=== PATIENT | male | born 1985 | race Caucasian/White ===

== ENCOUNTER 2017-06-23 17:09 | Emergency (ER) | payer BC ==
[~2017-06-23] VITALS: Ht 180.3 cm; Wt 68.5 kg
--- NOTE | 2017-06-23 17:15 | ER.PDOC ---
General Chief Complaint: Requesting Medical Care Stated Complaint: GENERAL Time seen by MD: 17:33 Source: patient Exam Limitations: no limitations History of Present Illness Onset: yesterday Context: laceration Severity: mild Associated Symptoms: unable to bear weight Past Medical History Medical History: no pertinent history Review of Systems Constitutional: no symptoms reported EENTM: no symptoms reported Respiratory: no symptoms reported Cardiovascular: no symptoms reported Gastrointestinal: no symptoms reported Skin: other (erythema l leg) Psychiatric/Neurological: see HPI, other (inabilty to focus) Physical Exam General Appearance: Alert, No Apparent Distress Foot: nml inspection, non-tender, nml color/temp, skin intact Ankle: swelling Knee: nml inspection, non-tender, nml ROM, no joint swelling Thigh/Hip: nml inspection 1 - erythema Gait: normal Neuro/Vasc/Tendon: sensation nml, motor nml, no vascular compromise, tendon function nml Skin: warm/dry Head/ENT: nml inspection, pharynx nml Neck/Back: nml inspection, non-tender Abdomen: non-tender, pelvis stable Results/Orders Results/Orders Laboratory Tests Test 06/23/17 17:30 White Blood Count 8.1 10^3/uL (4.5-11.0) Red Blood Count 4.56 10^6/uL (4.50-5.90) Hemoglobin 14.1 g/dL (13.9-16.3) Hematocrit 42.8 % (37.0-53.0) Mean Corpuscular Volume 93.9 fL (78-100) Mean Corpuscular Hemoglobin 30.9 pg (26-34) Mean Corpuscular Hemoglobin Concent 32.9 g/dL (33-37) Red Cell Distribution Width 13.1 % (11.5-14.5) Platelet Count 185 10^3/uL (150-400) Mean Platelet Volume 8.8 fL (7.8-11.0) Neutrophils (%) (Auto) 53.7 % (41.0-85.0) Lymphocytes (%) (Auto) 30.3 % (24.0-44.0) Monocytes (%) (Auto) 8.8 % (5.0-12.0) Neutrophils # (Auto) 4.3 10^3/uL (1.8-7.7) Lymphocytes # (Auto) 2.5 10^3/uL (1.0-4.8) Monocytes # (Auto) 0.7 10^3/uL (0.3-0.8) Absolute Immature Granulocyte (auto 0.02 10^3 u/L (0-2) Eosinophils % 6.6 % (0.0-5.0) Basophils % 0.4 % (0.0-0.2) Basophils # 0.0 10^3/uL (0.0-0.1) Erythrocyte Sedimentation Rate 1 mm/hr (0-20) Eosinophil Count 0.5 10^3/uL (0.0-0.2) Sodium Level 142 mmol/L (132-145) Potassium Level 4.2 mmol/L (3.6-5.2) Chloride Level 106.0 mmol/L (96-109) Carbon Dioxide Level 31.1 mmol/L (20.0-32) Anion Gap 9.1 Blood Urea Nitrogen 20 mg/dL (7-18) Creatinine 1.09 mg/dL (0.59-1.40) Estimated GFR () 95.5 (>/=60) BUN/Creatinine Ratio 18.0 Glucose Level 83 mg/dL (70-110) Calcium Level 9.5 mg/dL (8.4-10.5) Total Bilirubin 0.2 mg/dL (0.2-1.0) Aspartate Amino Transf (AST/SGOT) 20 U/L (0-35) Alanine Aminotransferase (ALT/SGPT) 24 U/L (12-78) Alkaline Phosphatase 57 U/L (50-136) C-Reactive Protein 0.08 mg/dL (0.00-5.00) Total Protein 6.9 g/dL (6.4-8.2) Albumin 3.7 g/dL (3.4-5.0) Globulin 3.2 Percent Immature Gran (Cell Imm) 0.20 % (0.00-0.50) Departure Time of Disposition: 19:00 Disposition: 01 HOME, SELF-CARE Impression: Primary Impression: Cellulitis Referrals: PCP,UNKNOWN (PCP) PRIMARY CARE PROVIDER FANNY CH MD Jun 23, 2017 17:15
--- NOTE | 2017-06-23 17:17 | NUR ---
URGENT CARE KRISS BOYCE, CALLED TO NOTIFY THE ED THAT THE NURSE GAVE THE PT 25 MG OF PHENERGAN AND DID NOT GIVE [address] CH AND BRITTANY, RN, HAVE BEEN NOTIFIED
[2017-06-23 17:33] LABS: BASOPHIL % 0.4 % (0.0-0.2); EOSINOPHIL # 0.5 10^3/uL (0.0-0.2); EOSINOPHIL % 6.6 % (0.0-5.0); HEMOGLOBIN 14.1 g/dL (13.9-16.3); LYMPHOCYTES # 2.5 10^3/uL (1.0-4.8); LYMPHOCYTES % 30.3 % (24.0-44.0); MEAN CELL HGB 30.9 pg (26-34); MEAN CELL HGB CONCENTRATION 32.9 g/dL (33-37); MEAN CORP VOLUME 93.9 fL (78-100); MEAN PLATELET VOLUME 8.8 fL (7.8-11.0); MONOCYTES # 0.7 10^3/uL (0.3-0.8); MONOCYTES % 8.8 % (5.0-12.0); NEUTROPHIL # 4.3 10^3/uL (1.8-7.7); NEUTROPHILS % 53.7 % (41.0-85.0); RED CELL DISTRIBUTION WIDTH 13.1 % (11.5-14.5); WHITE BLOOD CELL 8.1 10^3/uL (4.5-11.0)
[2017-06-23 17:48] LABS: CALCIUM 9.5 mg/dL (8.4-10.5); CARBON DIOXIDE 31.1 mmol/L (20.0-32)
[2017-06-23 19:15] VITALS: BP 131/94
== END 2017-06-23 18:53 | disposition home or self-care (01) ==
LOC: ER 17:09
DX: L03.116 Cellulitis of left lower limb (principal)
CPT/HCPCS: 36415; 80053; 85025; 85651; 86140; 99284